=== PATIENT | male | born 1945 | race African-American/Black ===

== ENCOUNTER 2018-06-05 21:01 | Observation (INO) | payer OTHER ==
[2018-06-05] MEDS ORDERED: NS 1,000 ML IV ONE ×2 (21:06→21:36)
--- NOTE | 2018-06-05 21:07 | EDPHY ---
H & P Time Seen by Provider: 06/05/18 21:06 HPI/ROS: CHIEF COMPLAINT: Syncope HISTORY OF PRESENT ILLNESS: The patient presents to the ED after syncopal episode at home. He reportedly was watching television on the couch when he was overcome with nausea. The patient stood up and sustained a syncopal episode. The patient fell twisting his left leg. He complains of pain along his left anterior thigh. The patient denies any antecedent chest pain, palpitations or shortness of breath. The patient does report he takes hydrochlorothiazide for his hypertension which he recently started. The patient currently denies any headache, acute numbness or weakness. He does continue to experience nausea. REVIEW OF SYSTEMS: A comprehensive 10 point review of systems is otherwise negative aside from elements mentioned in the history of present illness. Source: Patient Exam Limitations: No limitations - Personal History Tetanus Vaccine Date: UNSURE - Medical/Surgical History Hx Asthma: No Hx Chronic Respiratory Disease: No Hx Diabetes: No Hx Cardiac Disease: No Hx Renal Disease: No Hx Cirrhosis: No Hx Alcoholism: No Hx HIV/AIDS: No Hx Splenectomy or Spleen Trauma: No Other PMH: PE, Knee surgery x 6, Knee replacement L, L3/4 fusion, neck surgery for tumor removal cardiac ablasion - Social History Smoking Status: Never smoked - Physical Exam Exam: General Appearance: Alert, no distress Eyes: Pupils equal and round no pallor or injection ENT, Mouth: Mucous membranes moist Respiratory: There are no retractions, lungs are clear to auscultation Cardiovascular: Regular rate and rhythm Gastrointestinal: Abdomen is soft and nontender, no masses, bowel sounds normal Neurological: A&O, normal motor function, normal sensory exam, normal cranial nerves Skin: Warm and dry, no rashes Musculoskeletal: Tenderness to palpation over the left proximal quadriceps muscle. Extremities: symmetrical, full range of motion Psychiatric: Patient is oriented X 3, there is no agitation Constitutional: Initial Vital Signs Temperature (C) 37.1 C 06/05/18 21:05 Heart Rate 80 06/05/18 21:05 Respiratory Rate 18 06/05/18 21:05 Blood Pressure 103/72 06/05/18 21:05 O2 Sat (%) 95 06/05/18 21:05 O2 Delivery Mode Room Air Allergies/Adverse Reactions: latex Allergy (Severe, Verified 07/17/12 14:13) Rash Home Medications: Medication Instructions Recorded buPROPion XL [Wellbutrin 150mg XL] 150 mg PO DAILY20 07/17/12 Finasteride [Proscar 5 MG (*)] 5 mg PO HS 11/15/14 Gabapentin 06/05/18 HCTZ (*) 06/05/18 Hydrocodone-Acetamin 7.5-325 06/05/18 Medical Decision Making - Diagnostics EKG Interpretation: EKG: Complete interpretation has been separately recorded in the [facility] archive. Summary impression: Sinus rhythm, rate 80, no ST segment elevation or depression noted ED Course/Re-evaluation: The patient presents the ED after a syncopal episode at home. It appears to be precipitated by nausea resulting in a vasovagal episode. The patient arrived to the emergency department with a normal blood pressure. His heart rate is 80. The patient was taken for an x-ray of the left femur which demonstrated no evidence of an acute fracture. Patient did receive IV fluids in the emergency department for his vasovagal episode. He also received 4 mg of IV morphine for his thigh discomfort. I re-evaluated the patient at 11:00 p.m.. He is still complaining of nausea and "not feeling right." His neurologic examination remains normal. While I do favor a vasovagal episode given his ongoing symptoms I feel he should be admitted to the hospital for observation. Consultation was made with Dr. Hicks from the hospitalist service who will admit the patient this evening. Differential Diagnosis: Differential diagnosis considered includes vasovagal episode, arrhythmia, dehydration, metabolic abnormality, femur fracture, leg strain - Data Points Laboratory Results: Laboratory Results 06/05/18 21:00 06/05/18 21:00 06/05/18 06/05/18 21:00 21:00 WBC 7.64 10^3/uL 10^3/uL (3.80-9.50) RBC 6.93 10^6/uL H 10^6/uL (4.40-6.38) Hgb 16.6 g/dL g/dL (13.7-17.5) Hct 52.2 % H % (40.0-51.0) MCV 75.3 fL L fL (81.5-99.8) MCH 24.0 pg L pg (27.9-34.1) MCHC 31.8 g/dL L g/dL (32.4-36.7) RDW 18.6 % H % (11.5-15.2) Plt Count 286 10^3/uL 10^3/uL (150-400) MPV 9.7 fL fL (8.7-11.7) Neut % (Auto) 33.5 % L % (39.3-74.2) Lymph % (Auto) 54.7 % H % (15.0-45.0) Rock % (Auto) 9.2 % % (4.5-13.0) Eos % (Auto) 1.4 % % (0.6-7.6) Baso % (Auto) 0.7 % % (0.3-1.7) Nucleat RBC Rel Count 0.0 % % (0.0-0.2) Absolute Neuts (auto) 2.56 10^3/uL 10^3/uL (1.70-6.50) Absolute Lymphs (auto) 4.18 10^3/uL H 10^3/uL (1.00-3.00) Absolute Monos (auto) 0.70 10^3/uL 10^3/uL (0.30-0.80) Absolute Eos (auto) 0.11 10^3/uL 10^3/uL (0.03-0.40) Absolute Basos (auto) 0.05 10^3/uL 10^3/uL (0.02-0.10) Absolute Nucleated RBC 0.00 10^3/uL 10^3/uL (0-0.01) Immature Gran % 0.5 % % (0.0-1.1) Immature Gran # 0.04 10^3/uL 10^3/uL (0.00-0.10) Sodium 142 mEq/L mEq/L (135-145) Potassium 4.0 mEq/L mEq/L (3.3-5.0) Chloride 100 mEq/L mEq/L (97-110) Carbon Dioxide 29 mEq/l mEq/l (22-31) Anion Gap 13 mEq/L mEq/L (8-16) BUN 19 mg/dL mg/dL (7-23) Creatinine 1.5 mg/dL H mg/dL (0.7-1.3) Estimated GFR 46 Glucose 115 mg/dL H mg/dL (70-100) Calcium 10.7 mg/dL H mg/dL (8.5-10.4) Phosphorus 4.0 mg/dL mg/dL (2.5-4.5) Medications Given: Discontinued Medications Sodium Chloride (Ns) 1,000 mls @ 0 mls/hr IV EDNOW ONE; Wide Open PRN Reason: Protocol Stop: 06/05/18 21:07 Last Admin: 06/05/18 21:18 Dose: 1,000 mls Sodium Chloride (Ns) 1,000 mls @ 0 mls/hr IV EDNOW ONE; Wide Open PRN Reason: Protocol Stop: 06/05/18 21:37 Last Admin: 06/05/18 21:59 Dose: 1,000 mls Morphine Sulfate (Morphine) 4 mg IVP EDNOW ONE Stop: 06/05/18 21:38 Last Admin: 06/05/18 22:34 Dose: Not Given Morphine Sulfate (Morphine) 4 mg IVP EDNOW ONE Stop: 06/05/18 22:26 Last Admin: 06/05/18 22:27 Dose: 4 mg Departure - Departure Disposition: [facility] Inpatient Acute Clinical Impression: Syncope, Muscle strain of thigh Condition: Good Referrals: KARYNA ESPINOZA [Primary Care Provider] - As per Instructions
[2018-06-05 21:18] LABS: PLATELET COUNT 286 10^3/uL (150-400)
--- NOTE | 2018-06-05 21:23 | CPEKG ---
Test Reason : OPEN Blood Pressure : / mmHG Vent. Rate : 080 BPM Atrial Rate : 080 BPM P-R Int : 154 ms QRS Dur : 079 ms QT Int : 356 ms P-R-T Axes : 074 064 046 degrees QTc Int : 411 ms Sinus rhythm Right atrial enlargement Confirmed by Abilio Ventura ([id number]) on 06/05/2018 9:23:40 PM Referred By: Confirmed By:Abilio Ventura
[2018-06-05] MEDS ORDERED: ONDANSETRON 4 MG/2 ML VIAL IVP PRN (23:08)
[2018-06-05] MEDS ORDERED: ONDANSETRON DISINTEGRATING 4 MG TAB PO PRN (23:08)
[2018-06-05] MEDS ORDERED: ACETAMINOPHEN 325 MG TAB PO PRN (23:08)
[2018-06-05] MEDS ORDERED: LORazepam 0.5 MG TAB PO PRN (23:11)
[2018-06-05] MEDS ORDERED: NS 1,000 ML IV SCH (23:15)
[2018-06-06] MEDS ORDERED: HYDROCODONE/APAP 5/325 TAB PO PRN (00:43)
[2018-06-06] MEDS ORDERED: clonazePAM 0.5 MG TAB PO PRN (00:52)
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
[2018-06-06 06:09] LABS: PLATELET COUNT 224 10^3/uL (150-400)
[2018-06-06] MEDS: GABAPENTIN 300 MG CAP PO SCH ×2 (08:33→16:58)
[2018-06-06] MEDS ORDERED: FINASTERIDE 5 MG TAB PO SCH (11:00)
[2018-06-06] MEDS ORDERED: buPROPion XL 150 MG TAB PO SCH (11:00)
[2018-06-06 13:00] VITALS: BP 135/83
--- NOTE | 2018-06-06 13:47 | ECHO ---
[email or web address] [address] [address] Main: [phone] Fax: [email or web address] Echocardiogram Name: PETER FRAGOSO MR#: [id number] Study Date: 06/06/2018 Study Time: 11:33 AM Date of : 1945 Age: 72 year(s) Height: 193 cm (76 in.) Weight: 97.98 kg (216 lb.) BSA: 2.29 m2 Gender: Male Examination: Echo Indication: Cardiac: syncope Image Quality: Adequate Contrast: Requested by: Sam Love BP: 133 mmHg/84 mmHg Heart Rate: Rhythm: Indication: Cardiac: syncope Procedure Staff Monitoring Manager: Saritha Mckay [facility] Reading Physician: Verenice Overton MD Requesting Provider: Conclusions: Normal size left ventricle. Borderline concentric LV hypertrophy. Normal global systolic LV function. EF is 59 %. No regional wall motion abnormality. Normal diastolic LV function. Normal size right ventricle. Normal RV function. Mild mitral valve regurgitation is present. No pericardial effusion. There is no previous echocardiogram for comparison. Measurements: Chambers Valvular Assessment AV/MV Valvular Assessment TV/PV Normal Normal Normal Name Value Range Name Value Range Name Value Range Ao Ssuie (2D): 4.4 cm (1.4 cm-2.6 AV Vmax: 1.35 m/s (1 m/s-1.7 PV Vmax: 0.71 m/s (0.6 m/s-0.9 cm) m/s) m/s) IVSd (2D): 1.1 cm (0.6 cm-1.1 AV maxP mmHg ( - ) PV PGmax: 2 mmHg ( - ) cm) AV meanP mmHg ( - ) LVDd (2D): 4.6 cm (4.2 cm-5.9 SUDHEER (VTI): 1.9 cm ( - ) cm) MV E Vmax: 0.66 m/s ( - ) LVDs (2D): 3.2 cm (2.1 cm-4 MV A Vmax: 0.54 m/s ( - ) cm) MV E/A: 1.22 ( - ) LVPWd (2D): 1.0 cm (0.6 cm-1 cm) MV PHT: 0.083 s ( - ) LVOTd 2.1 cm 2.1 cm mm MVA (PHT): 2.7 s ( - ) LVEF (BP): 59 % (>=55 %) RVDd(2D): 3.4 cm (1.9 cm-3.8 cmmm) Patient: PETER FRAGOSO Study Date: 06/06/2018 Page 1 of 2 11:33 AM Continued Measurements: Chambers Valvular Assessment AV/MV Name Value Name Value LADs: 3.6 cm MV DecTime: 275 m/s LADs Lon.7 cm MV E' Septal: 0.10 m/s LA Area: 19.8 cm2 MV E/E' Septal: 6.30 LA Volume: 76 ml MV E/E' Lateral: 6.10 LA Volume Index: 33.2 ml/m2 RA Area: 20.8 cm2 Additional Vessels Name Value Ao Ascendin.7 cm Inferior Vena Cava: 1.5 cm Findings: Left Ventricle: Normal size left ventricle. Borderline concentric LV hypertrophy. Normal global systolic LV function. EF is 59 %. No regional wall motion abnormality. Normal diastolic LV function. Right Ventricle: Normal size right ventricle. Normal RV function. Left Atrium: The left atrium is normal in size. Right Atrium: The right atrium is normal in size. Mitral Valve: The mitral valve is normal in appearance and function. Mild mitral valve regurgitation is present. No mitral stenosis is present. Aortic Valve: The aortic valve is tri-leaflet. There is no significant aortic valve regurgitation. No aortic valve stenosis is present. Tricuspid Valve: The tricuspid valve is normal in appearance and function. Trivial tricuspid valve regurgitation. Pulmonic Valve: The pulmonic valve is normal in appearance and function. There is no pulmonic regurgitation seen. Aorta: The aorta is normal. Dilated aortic root measuring 4.4 cm. Normal size ascending aorta measuring 3.7 cm. IVC: The IVC is normal sized. Pericardium: No pericardial effusion. No pleural effusion. Exam Comments: EKG not working correctly on machine. (No Signature Object) Patient: PETER FRAGOSO Study Date: 06/06/2018 Page 2 of 2 11:33 AM [id number]
--- NOTE | 2018-06-06 14:39 | GCON ---
I was asked to see the patient by the hospitalist. He has been admitted for medical reasons. He joe tained a left ankle injury during a near-syncopal episode recently. I was asked to evaluate. Of not e, he is known to Dr. De La Rosa for multiple procedures on his extremities. PHYSICAL EXAMINATION: He does have swelling and an ankle effusion on the left ankle. He denies any other areas of musculoskeletal complaints, aside from some mild right ankle pain and some left proxim al tibia pain. He has full range of motion about the left ankle. It is grossly stable to varus and valgus eversion and inversion stresses. He has no sensory, motor, or vascular deficits and is grossl y neurologically intact. Limited by pain. IMAGING: I have reviewed x-rays of the patient's left ankle. They demonstrate what appears to be li quinn a chronic avulsion fracture of the medial malleolus. The ankle mortise itself is intact. I do not see any other evidence of fracture or instability about the ankle. IMPRESSION: Left medial malleolus avulsion fracture. ASSESSMENT/PLAN: I told the patient this should be treated nonsurgically. We will get him a Cam bonilla t. I do think he can safely walk on the ankle as this is not an unstable ankle. He may need crutche s for stability and pain relief; however, I encouraged him that this ankle is fine to walk on. I aniyah d him to see me in the clinic in a week, next Saturday. In the meantime, will get him a Cam boot. Of note, the office can be reached directly at [phone]. /[id number]/MODL
--- NOTE | 2018-06-06 14:55 | PDDCSUM ---
Discharge Summary Discharge Summary: Date of Admission: 06/05/2018 Date of Discharge: 06/06/2018 Consults: Orthopaedics, Cardiology, PCP Procedures: TTE Followup: Event monitor with cardiology, Orthopaedics in 1 week Hospital Course Problem List: Syncope: - LOC while watching TV with prodrome of nausea and diaphoresis - EKG on admission with no acute ST changes or arrythmia, Trop negative, no events on telemetry overnight - TTE performed during admission with no significant findings - Possible vasovagal or orthostatic in setting of dehydration and HCTZ - S/p IVF with Cr improving from 1.5 to 1.2 - Will continue to hold HCTZ on discharge - Discussed with Cardiology who recommended cardiac monitoring as outpatient, they have ordered and will mail patient monitor ALEXEI - Cr 1.5 on admission, 1.2 this morning s/p IVF - No baseline known - F/u with PCP within next 1-2 weeks for repeat BMP Medial Malleolus Fracture - Noted on XR - Ortho consulted who recommended CAM boot and f/u in 1 week in clinic Time spent on discharge was >35 minutes with >50% of time spent on patient education and counseling
--- NOTE | 2018-06-06 15:03 | ASMTCMCOM ---
CM Note CM Note Notes: Patient admitted for a syncopal episode at home and resultant leg and ankle pain. He has a very tiny fracture on his medial malleolus, which ortho has recommended non-surgical intervention for. He has a fairly long list of chronic medical issues but is well managed on medications. Patient is normally independent and lives with his . I do not anticipate any discharge needs, but CM available should they arise. Date Signed: 06/06/2018 02:57 PM Electronically Signed By:Charlette Khalil RN
[2018-06-06] MEDS ORDERED: clonazePAM 0.5 MG TAB PO SCH (21:00)
== END 2018-06-06 17:05 | disposition home or self-care (01) ==
LOC: EDUNIT# → F2W 23:36
PROVIDERS: ADMIT Family Medicine; ATTEND Internal Medicine
DX: R55 Syncope and collapse (principal); S82.52XA Displaced fracture of medial malleolus of left tibia, initial encounter for closed fracture; W18.39XA Other fall on same level, initial encounter; Y92.008 Other place in unspecified non-institutional (private) residence as the place of occurrence of the external cause; E86.9 Volume depletion, unspecified; N17.9 Acute kidney failure, unspecified; I10 Essential (primary) hypertension; M54.16 Radiculopathy, lumbar region; Z98.1 Arthrodesis status; E78.5 Hyperlipidemia, unspecified; Z86.711 Personal history of pulmonary embolism; Z91.040 Latex allergy status; N40.0 Benign prostatic hyperplasia without lower urinary tract symptoms; F43.10 Post-traumatic stress disorder, unspecified
CPT/HCPCS: 73551; 73610; 93005; 93306; 96361; 96374; 99285; G0378; J2270